=== PATIENT | female | born 1935 | race Caucasian/White ===

== ENCOUNTER 2018-01-27 18:03 | Emergency (ER) | payer OTHER ==
[2018-01-27 18:14] VITALS: BP 133/69; PULSE 80; TEMP 98.2; BMI 25.2
--- NOTE | 2018-01-27 19:31 | PDOC ---
History of Present Illness - General History Source: Patient, Family Exam Limitations: No Limitations - History of Present Illness Initial Comments: 01/27/18 19:53 A portion of this note was documented by scribe services under my direction. I have reviewed the details of the note, within reason, and agree with the documentation with the following case summary and management plan written by me. Patient treated in the ED. Nursing notes are reviewed and incorporated into the medical decision-making. Vital signs reviewed. Assessment and plan: This is an 82-year-old female who fell 2 days ago and has initially no pain on ambulating but over the next 24-48 hours developed some discomfort and difficulty with movement. Patient denied any pain when she actually was bearing weight however getting up and moving from a sitting to standing position was uncomfortable in the area of a large bruise on her back. Patient is on Coumadin and her Coumadin was recently checked and was therapeutic. Patient has not been taking anything for the pain or discomfort. Patient has visiting nurses saw her today and told her she needed to come into the emergency department to get checked out to make sure there was nothing broken. There was no tenderness on palpation of the thoracic lumbar or sacral spine, there was no tenderness on palpation of the hips or pelvis. Patient did have a large contusion over her lower latissimus dorsi on the right and did localize her discomfort to movements that involved about muscle. Patient's family was reassured that there was nothing broken and that she should get better over the next several days that she can take Tylenol as she is already on a blood thinner I did not want her taking additional blood thinners. That she should follow up with her primary care doctor this week <Tiara Hernandez I - Last Filed: 01/27/18 19:53> - History of Present Illness Initial Comments: 01/27/18 20:06 The patient is a 82 year old female, with a significant PMH of bilateral breast cancer and bilateral venous stasis ulcerations who presents to the emergency department with bruising and soreness to the right lower back. Patient had a fall two days ago but noticed the soreness earlier today. Patient is on coumadin. Patient took an aleve last night for pain but nothing today. Patient denies any change in mental status. The patient denies chest pain, shortness of breath, headache and dizziness. Denies fever, chills, nausea, vomit, diarrhea and constipation. Denies dysuria, frequency, urgency and hematuria. Allergies: NKA Past surgical history: None reported. Social history: No reported alcohol, drug or cigarette use. Adult ROS General: No fevers or chills, no weakness, no weight loss HEENT: No change in vision. No sore throat,. No ear pain CardioVascular: No chest pain or shortness of breath Respiratory:No cough, or wheezing. Gastrointestinal: no nausea, vomiting, diarrhea or constipation, No rectal bleeding Genitourinary: No dysuria, hematuria, or frequency Musculoskeletal: No joint pain or swelling. (+) Right lower back brusing and soreness. Neurologic: No headache, vertigo, dizziness or loss of consciousness Psychiatric: nor depression Skin: No rashes or easy bruising Endocrine: no increased thirst or abnormal weight change Allergic: no skin or latex allergy All other systems reviewed and normal Adult Exam: General: Well-nourished well-developed individual, no acute distress HEENT: Throat: Normal, tonsils normal, no erythema or exudate Neck: Supple, no meningeal signs, no lymphadenopathy Eyes::Pupils equal reactive and round, extraocular motion intact Chest: Nontender to palpation Cardiac: S1-S2 normal, regular rate and rhythm, no murmurs rubs or gallops Respiratory: Lungs clear to auscultation bilateral Abdomen: Soft, nondistended, normal bowel sounds, nontender to palpation diffusely Extremities: Warm, dry, no cyanosis, clubbing, or edema Back: No tenderness of the thoracic, lumbar, or sacral spine. No tenderness of the bony structures of the right hips or pelvis. (+) Small soft tissue contusion over the right cheek and large contusion over the right lower back. (+ ) Tenderness to the soft tissue underlying the contusion. No right CVA tenderness. Patient was able to ambulate without discomfort but did express discomfort when standing from a sitting position. Skin: No rashes Neuro: Alert and oriented x3, nonfocal exam, grossly intact, normal gait Psych: Normal mood and affect <Lillian Sellers - Last Filed: 01/27/18 20:17> - General Chief Complaint: Injury Stated Complaint: fell,bruise on right flank and face Time Seen by Provider: 01/27/18 19:09 Past History - Past Medical History Cancer: Yes (B/L breast) COPD: No Disorders: Yes (incontinence) HTN: Yes Other medical history: ,b/l venous stasis ulcerations,phlebitis/DVT, neurofibromas - Suicide/Smoking/Psychosocial Hx Smoking History: Never smoked Information on smoking cessation initiated: No Hx Alcohol Use: No Substance Use Type: None <Tiara Hernandez I - Last Filed: 01/27/18 19:53> <Lillian Sellers - Last Filed: 01/27/18 20:17> - Past Medical History Allergies/Adverse Reactions: Allergies Allergy/AdvReac Type Severity Reaction Status Date / Time latex Allergy Severe Rash Verified 01/27/18 18:31 sulfamethoxazole Allergy Mild Rash Verified 01/27/18 18:30 [From Bactrim] trimethoprim [From Bactrim] Allergy Mild Rash Verified 01/27/18 18:30 bandage Allergy Intermediate Rash Uncoded 01/27/18 18:42 Home Medications: Ambulatory Orders Amlodipine Besylate 5 mg PO DAILY 01/27/18 Cholecalciferol (Vitamin D3) [Vitamin D3] 5,000 unit PO DAILY 01/27/18 Warfarin Sodium [Coumadin] 7.5 mg PO DAILY 01/27/18 *Physical Exam - Vital Signs Last Vital Signs Temp Pulse Resp BP Pulse Ox 98.2 F 80 16 133/69 100 01/27/18 18:05 01/27/18 18:05 01/27/18 18:05 01/27/18 18:05 01/27/18 18:05 <Tiara Hernandez I - Last Filed: 01/27/18 19:53> - Vital Signs Last Vital Signs Temp Pulse Resp BP Pulse Ox 98.2 F 80 16 133/69 100 01/27/18 18:05 01/27/18 18:05 01/27/18 18:05 01/27/18 18:05 01/27/18 18:05 <Lillian Sellers - Last Filed: 01/27/18 20:17> ED Treatment Course - Medications Given in the ED: ED Medications Discontinued Medications Generic Name Dose Route Start Last Admin Trade Name Freq PRN Reason Stop Dose Admin Acetaminophen 1,000 mg 01/27/18 19:38 01/27/18 19:42 Tylenol - PO 01/27/18 19:39 1,000 mg ONCE ONE Administration <Tiffani Sellerssy - Last Filed: 01/27/18 20:17> *DC/Admit/Observation/Transfer - Discharge Dispostion Decision to Admit order: No <Tiara Hernandez I - Last Filed: 01/27/18 19:53> - Attestations Scribe Attestion: 01/27/18 20:17 Documentation prepared by Lillian Sellers, acting as medical appointment scheduler for Tiara Hernandez MD. <Lillian Sellers - Last Filed: 01/27/18 20:17> Diagnosis at time of Disposition: Contusion of lower back Qualifiers: Encounter type: initial encounter Qualified Code(s): S30.0XXA - Contusion of lower back and pelvis, initial encounter Contusion of face Qualifiers: Encounter type: initial encounter Qualified Code(s): S00.83XA - Contusion of other part of head, initial encounter - Discharge Dispostion Disposition: HOME Condition at time of disposition: Fair - Patient Instructions Additional Instructions: For the pain and discomfort take Tylenol 2 tablets as often as every 6 hours if needed. It is normal that you're experiencing discomfort in the area of the bruise. The discomfort usually peaks after 2-3 days of the injury and then starts to get better. You are able to walk and bear weight without any discomfort in your low back or hips or pelvis so your injury is soft tissue and muscle secondary to the bruise in the area. When you use your muscles in that area it is uncomfortable. This is normal with this type of injury. You can start using some heat to the area. You're medically cleared to start some physical therapy for strength conditioning. However do not start physical therapy until Saturday of next week or U have no further discomfort with movement and ambulation. Return to the emergency department immediately with ANY new, persistent or worsening symptoms. Continue any medications as previously prescribed by your physician. You should follow up with your primary doctor as soon as possible regarding today's emergency department visit. . Please make sure your doctor reviews the results of your emergency evaluation. Thank you for coming to the Emergency Department today for your care. It was a pleasure to see you today. Please note that your evaluation is INCOMPLETE until you follow-up with your doctor.
[2018-01-27] MEDS ORDERED: ACETAMINOPHEN 500 MG TABLET (FP) PO ONE (19:38)
[2018-01-27] MEDS ORDERED: ACETAMINOPHEN 500 MG TABLET (FP) ONE (19:41)
== END 2018-01-27 19:45 | disposition home or self-care (01) ==
LOC: FER 18:03
DX: S30.0XXA Contusion of lower back and pelvis, initial encounter (principal); W18.39XA Other fall on same level, initial encounter; Y93.9 Activity, unspecified; Y92.9 Unspecified place or not applicable; Z79.01 Long term (current) use of anticoagulants
CPT/HCPCS: 99281-25